=== PATIENT | female | born 1945 | race Asian ===

== ENCOUNTER 2022-04-22 02:26 | Emergency (ER) | payer OTHER ==
[~2022-04-22] VITALS: Ht 157.5 cm; Wt 65.8 kg
[2022-04-22 02:51] VITALS: BP_SYST 152
--- NOTE | 2022-04-22 03:02 | NUR ---
DR CROCKER ASSESSED PT IN WAITING ROOM
[2022-04-22] MEDS ORDERED: AMOX-423 PO (03:11)
[2022-04-22] MEDS ORDERED: DIPH-TET-PERTUS Vaccine 0.5 ML VIAL (ADACEL) I.M. ONE (03:15)
[2022-04-22] MEDS ORDERED: AMOXICILLIN/CLAVULANATE POTASSIUM 500 MG TABLET PO ONE (03:15)
[2022-04-22] MEDS ORDERED: OXYMETAZOLINE HCL 0.05% NASAL SPRAY NS ONE ×2 (03:41→04:15)
[2022-04-22] MEDS ORDERED: cloNIDine HCL 0.1 MG TABLET PO ONE (04:00)
[2022-04-22] MEDS ORDERED: TRANEXAMIC ACID 1,000 MG/10 ML VIAL IV ONE (04:15)
[2022-04-22] MEDS ORDERED: hydrALAZINE HCL 20 MG/ML VIAL IVP ONE (04:30)
[2022-04-22] MEDS ORDERED: CLON-433 PO (05:46)
[2022-04-22 06:20] VITALS: BP_SYST 155
== END 2022-04-22 06:20 | disposition home or self-care (01) ==
LOC: SED 02:26
DX: R04.0 Epistaxis (principal)
CPT/HCPCS: 99284; 90715; 30901; J0360; J3490